=== PATIENT | female | born 1995 | race Caucasian/White ===

== ENCOUNTER 2019-04-19 10:55 | Inpatient (IN) | payer OTHER, BC ==
[~2019-04-19] VITALS: Ht 175.3 cm; Wt 83.1 kg
[2019-04-19] MEDS ORDERED: SODIUM CITRATE/CITRIC ACID 30 ML UDC ONE (14:03)
[2019-04-19] MEDS ORDERED: OXYTOCIN 30U/ 0.9% NaCL 500ML 500 ML ONE (14:03)
[2019-04-19] MEDS ORDERED: NEWBORN KIT ONE (14:03)
[2019-04-19] MEDS ORDERED: METOCLOPRAMIDE 5 MG/ML, 2ML ONE (14:03)
[2019-04-19 14:28] LABS: BASOPHILS # (AUTO) 0.02 x10^3/uL (0-0.1); BASOPHILS % (AUTO) 0 % (0-1); EOSINOPHILS # (AUTO) 0.09 x10^3/uL (0-0.4); EOSINOPHILS % (AUTO) 1 % (1-7); LYMPHOCYTES # (AUTO) 1.21 x10^3/uL (1-3.4); LYMPHOCYTES % (AUTO) 14 % (22-44); MD NO; MEAN CORPUSCULAR HEMOGLOBIN 30.3 pg (27.0-34.8); MEAN CORPUSCULAR HGB CONC 33.3 g/dL (32.4-35.8); MONOCYTES # (AUTO) 0.51 x10^3/uL (0.2-0.8); MONOCYTES % (AUTO) 6 % (2-9); NEUTROPHILS # (AUTO) 6.84 x10^3/uL (1.8-6.8); NEUTROPHILS % (AUTO) 79 % (42-75); PLATELET COUNT 168 x10^3/uL (130-400); RED BLOOD COUNT 4.21 x10^6/uL (3.82-5.3); RED CELL DISTRIBUTION WIDTH 12.9 % (9.6-15.2)
[2019-04-19] MEDS ORDERED: SODIUM CITRATE/CITRIC ACID 30 ML UDC PO ONE (15:00)
[2019-04-19] MEDS ORDERED: METOCLOPRAMIDE 5 MG/ML, 2ML IV ONE (15:00)
[2019-04-19] MEDS ORDERED: LACTATED RINGERS 1,000 ML IVBOLUS ONE (15:00)
[2019-04-19] MEDS ORDERED: LACTATED RINGERS 1,000 ML IV SCH ×7 (15:00→17:28)
[2019-04-19] MEDS ORDERED: OXYTOCIN 10 UNITS/ML, 1ML ONE (16:54)
[2019-04-19] MEDS ORDERED: CEFAZOLIN 1,000 MG ONE (16:54)
[2019-04-19] MEDS ORDERED: FENTANYL PF 100 MCG/2ML ONE (16:54)
[2019-04-19] MEDS ORDERED: EPHEDRINE 50 MG/ML, 1ML ONE (16:54)
[2019-04-19] MEDS ORDERED: EPINEPHRINE 1 MG/ML, 1ML ONE (16:54)
[2019-04-19] MEDS: OXYTOCIN 30U/ 0.9% NaCL 500ML 500 ML IV SCH (17:26)
[2019-04-19] MEDS ORDERED: OXYTOCIN 30U/ 0.9% NaCL 500ML 500 ML IV SCH ×3 (17:26→17:28)
[2019-04-19] MEDS: LACTATED RINGERS 1,000 ML IV SCH ×2 (17:26)
[2019-04-19] MEDS ORDERED: KETOROLAC 30 MG/1 ML IV SCH (17:30)
[2019-04-19] MEDS ORDERED: ACETAMINOPHEN 325 MG TABLET PO PRN ×2 (17:30)
[2019-04-19] MEDS ORDERED: ONDANSETRON 2MG/ML, 2ML IV PRN (17:30)
[2019-04-19] MEDS ORDERED: MISOPROSTOL 200 MCG TABLET PR PRN (17:30)
[2019-04-19] MEDS ORDERED: METOCLOPRAMIDE 5 MG/ML, 2ML IV PRN (17:30)
[2019-04-19] MEDS ORDERED: MEASLES,MUMPS&RUBELLA VACC/PF 0.5 ML SQ-VACC PRN (17:30)
[2019-04-19] MEDS ORDERED: OXYcodone/APAP 5/325MG TABLET PO PRN ×2 (17:30)
[2019-04-19] MEDS ORDERED: DOCUSATE 100 MG CAPSULE PO PRN ×3 (17:30)
[2019-04-19] MEDS ORDERED: MORPHINE SULFATE 4 MG/ML, 1ML IVPush PRN (17:30)
[2019-04-19] MEDS ORDERED: CALCIUM CARBONATE 500 MG TAB.CHEW PO PRN (17:30)
[2019-04-19] MEDS ORDERED: RHOGAM FROM BLOOD BANK 1 NOTE EA IM/IV ONE (17:30)
[2019-04-19] MEDS ORDERED: DIPH,PERTUSS(ACELL),TET VAC/PF NC IM-VACC PRN (17:30)
[2019-04-19] MEDS ORDERED: SIMETHICONE 80 MG CHEW TAB PO PRN ×4 (17:30)
[2019-04-19 20:40] VITALS: BP 103/70
[2019-04-19] MEDS ORDERED: OXYcodone/APAP 5/325MG TABLET ONE (21:52)
[2019-04-19] MEDS: OXYcodone/APAP 5/325MG TABLET PO PRN (21:54)
[2019-04-19 23:40] VITALS: BP 113/72
[2019-04-19] MEDS: KETOROLAC 30 MG/1 ML IV SCH (23:44)
[2019-04-20] MEDS: LACTATED RINGERS 1,000 ML IV SCH ×6 (01:26→23:26)
[2019-04-20] MEDS: OXYcodone/APAP 5/325MG TABLET PO PRN ×4 (03:00→20:19)
[2019-04-20] MEDS: OXYTOCIN 30U/ 0.9% NaCL 500ML 500 ML IV SCH ×3 (03:26→23:26)
[2019-04-20 03:45] LABS: BASOPHILS # (AUTO) 0.01 x10^3/uL (0-0.1); BASOPHILS % (AUTO) 0 % (0-1); EOSINOPHILS # (AUTO) 0.02 x10^3/uL (0-0.4); EOSINOPHILS % (AUTO) 0 % (1-7); LYMPHOCYTES # (AUTO) 1.21 x10^3/uL (1-3.4); LYMPHOCYTES % (AUTO) 13 % (22-44); MD NO; MEAN CORPUSCULAR HEMOGLOBIN 30.6 pg (27.0-34.8); MEAN CORPUSCULAR HGB CONC 33.4 g/dL (32.4-35.8); MEAN CORPUSCULAR VOLUME 91.5 fL (80-100); MEAN PLATELET VOLUME 7.9 fL (7.4-10.4); MONOCYTES # (AUTO) 0.58 x10^3/uL (0.2-0.8); MONOCYTES % (AUTO) 6 % (2-9); NEUTROPHILS # (AUTO) 7.92 x10^3/uL (1.8-6.8); NEUTROPHILS % (AUTO) 81 % (42-75); PLATELET COUNT 147 x10^3/uL (130-400); RED BLOOD COUNT 3.74 x10^6/uL (3.82-5.3)
[2019-04-20 04:30] VITALS: BP 109/67
[2019-04-20] MEDS: KETOROLAC 30 MG/1 ML IV SCH ×3 (05:50→18:26)
[2019-04-20] MEDS: PRENATAL VIT/IRON/FA 1 EACH TABLET PO SCH (07:37)
[2019-04-20] MEDS: DOCUSATE 100 MG CAPSULE PO PRN ×2 (07:38→20:19)
[2019-04-20 07:55] VITALS: BP 103/64
[2019-04-20] MEDS ORDERED: PRENATAL VIT/IRON/FA 1 EACH TABLET PO SCH ×3 (09:00)
[2019-04-20 12:50] VITALS: BP 98/60
[2019-04-20 20:00] VITALS: BP 103/61
[2019-04-21] MEDS: KETOROLAC 30 MG/1 ML IV SCH ×3 (00:21→12:11)
[2019-04-21] MEDS: OXYcodone/APAP 5/325MG TABLET PO PRN ×4 (00:21→19:14)
[2019-04-21] MEDS: LACTATED RINGERS 1,000 ML IV SCH ×5 (01:26→19:26)
[2019-04-21 08:35] VITALS: BP 98/50
[2019-04-21] MEDS: PRENATAL VIT/IRON/FA 1 EACH TABLET PO SCH (08:36)
[2019-04-21] MEDS: DOCUSATE 100 MG CAPSULE PO PRN ×2 (08:36→19:15)
[2019-04-21] MEDS: OXYTOCIN 30U/ 0.9% NaCL 500ML 500 ML IV SCH ×2 (09:26→19:26)
[2019-04-21] MEDS: IBUPROFEN 600 MG TABLET PO PRN (17:58)
[2019-04-21 20:20] VITALS: BP 106/70
[2019-04-22] MEDS: IBUPROFEN 600 MG TABLET PO PRN ×2 (00:09→09:51)
[2019-04-22] MEDS: OXYcodone/APAP 5/325MG TABLET PO PRN (00:09)
[2019-04-22] MEDS: LACTATED RINGERS 1,000 ML IV SCH ×3 (01:26→09:26)
[2019-04-22] MEDS: OXYTOCIN 30U/ 0.9% NaCL 500ML 500 ML IV SCH (05:26)
[2019-04-22 09:34] VITALS: BP 110/64
[2019-04-22] MEDS: DOCUSATE 100 MG CAPSULE PO PRN (09:51)
[2019-04-22] MEDS: PRENATAL VIT/IRON/FA 1 EACH TABLET PO SCH (09:51)
[2019-04-22] MEDS ORDERED: IBUP-1222 PO (12:36)
[2019-04-22] MEDS ORDERED: OXYC-302 PO (12:36)
== END 2019-04-22 19:16 | disposition home or self-care (01) | DRG 788 ==
LOC: LDIP 13:52 → 2NW 20:30
PROVIDERS: ADMIT Obstetrics & Gynecology; ATTEND Obstetrics & Gynecology
PROC: 10D00Z1 Extraction of Products of Conception, Low, Open Approach (ICD-10-PCS; principal; 2019-04-19)
DX: O41.03X0 Oligohydramnios, third trimester, not applicable or unspecified (principal); Z3A.38 38 weeks gestation of pregnancy; O32.1XX0 Maternal care for breech presentation, not applicable or unspecified; Z37.0 Single live birth
CPT/HCPCS: 36415; 82803; 85025; 86592; 86850; 86900; G0378; J0171; J0690; J1885; J3010; J2590; J2765; J7120